=== PATIENT | female | born 1980 ===

== ENCOUNTER 2017-12-17 19:54 | Emergency (ER) | payer OTHER ==
[2017-12-17 20:30] VITALS: BP 112/73
[2017-12-17] MEDS ORDERED: Oseltamivir CAP* 75 MG CAP PO ONE ×2 (21:15)
[2017-12-17] MEDS ORDERED: Ondansetron ODT TAB* 4 MG PO ONE (21:15)
--- NOTE | 2017-12-17 21:27 | UC ---
Respiratory Complaint HPI - HPI Summary HPI Summary: 37 yo female with the onset of f/c, n/v x 1 about 24 hours ago nasal congestion intermittent sore throat cough no diarrhea no cp or sob her had the flu <2 weeks ago (influenza A) - History of Current Complaint Chief Complaint: UCGeneralIllness Stated Complaint: ACHEY, UPSET STOMACH Time Seen by Provider: 12/17/17 21:06 Hx Obtained From: Patient Hx Last Menstrual Period: 12/13/17 Onset/Duration: Gradual Onset, Lasting Hours Timing: Constant Severity Initially: Moderate Severity Currently: Severe Pain Intensity: 9 Pain Scale Used: 0-10 Numeric Character: Cough: Nonproductive Aggravating Factors: Nothing - Allergies/Home Medications Allergies/Adverse Reactions: Allergies Allergy/AdvReac Type Severity Reaction Status Date / Time No Known Allergies Allergy Verified 12/17/17 20:31 Home Medications: Home Medications Ibuprofen TAB* [Motrin TAB* 600 MG] 600 mg PO Q8H PRN 12/17/17 [History Confirmed 12/17/17] Norgestrel-Ethinyl Estradiol [Cryselle-28 Tablet] 1 each PO DAILY 12/17/17 [ History Confirmed 12/17/17] PMH/Surg Hx/FS Hx/Imm Hx Previously Healthy: Yes - Surgical History Surgical History: Yes Surgery Procedure, Year, and Place: c section x2 - Family History Known Family History: Positive: Hypertension - Social History Alcohol Use: None Substance Use Type: None Smoking Status (MU): Never Smoked Tobacco Review of Systems Constitutional: Fever, Chills, Fatigue ENT: Sore Throat - none now, Nasal Discharge Respiratory: Cough Gastrointestinal: Vomiting - x1, Nausea Genitourinary: Negative Musculoskeletal: Myalgia - ++++ Neurological: Headache Psychological: Negative Is Patient Immunocompromised?: No All Other Systems Reviewed And Are Negative: Yes Physical Exam Triage Information Reviewed: Yes Appearance: Well-Appearing, No Pain Distress, Well-Nourished Vital Signs: Initial Vital Signs Temp 100.4 F 12/17/17 20:23 Pulse 92 12/17/17 20:23 Resp 17 12/17/17 20:23 BP 112/73 12/17/17 20:23 Pulse Ox 100 12/17/17 20:23 Vital Signs Reviewed: Yes Eyes: Positive: Conjunctiva Clear ENT: Positive: Hearing grossly normal, Pharynx normal, Nasal drainage, Uvula midline. Negative: Tonsillar swelling, Tonsillar exudate, Trismus, Muffled voice, Hoarse voice, Sinus tenderness Neck: Positive: Supple, Nontender, No Lymphadenopathy Respiratory: Positive: Lungs clear, Normal breath sounds, No respiratory distress, No accessory muscle use Cardiovascular: Positive: RRR, No Murmur Abdomen Description: Positive: Nontender, No Organomegaly, Soft Bowel Sounds: Positive: Present Musculoskeletal: Positive: ROM Intact, No Edema Neurological: Positive: Alert Psychological Exam: Normal Skin Exam: Normal Diagnostic Evaluation - Laboratory O2 Sat by Pulse Oximetry: 100 - normal, not hypoxic Respiratory Course/Dx - Differential Dx/Diagnosis Provider Diagnoses: influenza or influenza like illness Discharge - Sign-Out/Discharge Documenting (check all that apply): Discharge/Admit/Transfer - Discharge Plan Condition: Stable Disposition: HOME Prescriptions: Ondansetron TAB* [Zofran Tab*] 4 mg PO Q6H PRN #6 tab PRN Reason: Nausea Oseltamivir CAP* [Tamiflu CAP*] 75 mg PO BID #8 cap Patient Education Materials: Influenza (ED) Referrals: No Primary Care Phys,NOPCP [Primary Care Provider] - Additional Instructions: despite the negative flu test I suspect you have the flu or a flu like illness recheck for new or worsening symptoms rest tylenol or advil recheck early next week if not completely better - Billing Disposition and Condition Condition: STABLE Disposition: HOME
== END 2017-12-17 21:34 | disposition home or self-care (01) ==
LOC: UCCORT 19:54
DX: J11.1 Influenza due to unidentified influenza virus with other respiratory manifestations (principal)
CPT/HCPCS: 87502; 99213; A9270-GY; G0463